=== PATIENT | female | born 1945 | race Caucasian/White ===

== ENCOUNTER → 2017-11-20 | Outpatient (CLI) | payer MEDICARE, BC ==
[2017-11-20 13:19] LABS: HCT 45.3 % (34.0-46.0); MCH 32.9 pg (25.0-35.0); MCHC 33.1 g/dL (31.0-37.0); MCV 99.4 fL (80.0-100.0); Platelet Count 283 k/uL (150-450); RBC 4.56 m/uL (3.80-5.40); RDW 13.3 % (11.5-15.5); WBC 6.2 k/uL (3.8-10.6)
[2017-11-20 13:21] LABS: Appearance,Urine Clear (Clear); Bilirubin,Urine Negative (Negative); Blood,Urine Negative (Negative); Color,Urine Yellow; Glucose,Urine (UA) Negative (Negative); Ketones,Urine Negative (Negative); Leukocyte Esterase,Urine Negative (Negative); Nitrite,Urine Negative (Negative); PH, Urine 6.5 (5.0-8.0); Protein,Urine Negative (Negative); Specific Gravity,Urine 1.013 (1.001-1.035); Urobilinogen,Urine <2.0 mg/dL (<2.0)
[2017-11-20 13:24] LABS: Partial Thromboplastin Time 22.3 sec (22.0-30.0); Prothrombin Time 9.5 sec (9.0-12.0)
[2017-11-20 13:26] LABS: ALT 37 U/L (9-52); AST 36 U/L (14-36); Albumin 4.3 g/dL (3.5-5.0); Alkaline Phosphatase 79 U/L (38-126); Anion Gap 8 mmol/L; Blood Urea Nitrogen 17 mg/dL (7-17); Calcium 10.4 mg/dL (8.4-10.2); Carbon Dioxide 34 mmol/L (22-30); Chloride 103 mmol/L (98-107); Glucose 108 mg/dL (74-99); Potassium 4.9 mmol/L (3.5-5.1); Sodium 145 mmol/L (137-145); Total Bilirubin 0.5 mg/dL (0.2-1.3); Total Protein 7.5 g/dL (6.3-8.2)
== END | disposition home or self-care (01) ==
LOC: LABPAT 12:42
PROVIDERS: ATTEND Orthopaedic Surgery Sports Medicine
DX: Z01.818 Encounter for other preprocedural examination (principal); Z01.812 Encounter for preprocedural laboratory examination
CPT/HCPCS: 36415; 80053; 81003; 85027; 85610; 85730; 87070; 93005

== ENCOUNTER → 2018-09-16 | Outpatient (CLI) | payer MEDICARE | LOC: LABWHC1 12:01 | PROVIDERS: ATTEND Otolaryngology | DX: Z01.812 Encounter for preprocedural laboratory examination (principal); H93.3X1 Disorders of right acoustic nerve; H93.11 Tinnitus, right ear; H91.91 Unspecified hearing loss, right ear | CPT/HCPCS: 36415; 82565; 84520 ==

== ENCOUNTER 2019-06-07 11:54 | Emergency (ER) | payer MEDICARE, BC ==
[2019-06-07 12:20] VITALS: BP 158/74; PULSE 61; RESP 18; TEMP 97.9
[2019-06-07 13:10] LABS: Appearance,Urine Clear (Clear); Bilirubin,Urine Negative (Negative); Blood,Urine Negative (Negative); Color,Urine Yellow; Glucose,Urine (UA) Negative (Negative); Ketones,Urine Negative (Negative); Leukocyte Esterase,Urine Negative (Negative); Nitrite,Urine Negative (Negative); PH, Urine 6.5 (5.0-8.0); Protein,Urine Negative (Negative); Specific Gravity,Urine 1.014 (1.001-1.035); Urobilinogen,Urine <2.0 mg/dL (<2.0)
--- NOTE | 2019-06-07 13:58 | ED ---
General Adult HPI - General Source: patient, RN notes reviewed Mode of arrival: ambulatory Limitations: no limitations <Miko Garibay - Last Filed: 06/07/19 13:54> <Dallas Christensen - Last Filed: 06/07/19 16:30> - General Chief complaint: Urogenital Stated complaint: UTI Time Seen by Provider: 06/07/19 12:53 - History of Present Illness Initial comments: 74-year-old female presents to the emergency department for a chief complaint of dysuria. Patient states this has on a chronic problem. States this happens a few times a year. States that her OIL WELL LOGGER gave her 7 days of Bactrim. States that when they called to check in on her she was still having urinary symptoms including dysuria. No abdominal pain. No pressure. No fevers or chills. No CVA tenderness or back pain. Patient has no other complaints at this time including shortness of breath, chest pain, abdominal pain, nausea or vomiting, headache, or visual changes. (Miko Garibay) - Related Data Home Medications Medication Instructions Recorded Confirmed Benazepril/Hydrochlorothiazide 1 tab PO DAILY 12/18/15 06/07/19 [Benazepril-Hctz 20-12.5 mg Tab] Multivit with Calcium,Iron,Min 1 tab PO DAILY 12/18/15 06/07/19 [Women's Daily Multivitamin] Rosuvastatin [Crestor] 20 mg PO DAILY 12/18/15 06/07/19 cycloSPORINE [Restasis] 1 drop BOTH EYES BID 12/18/15 06/07/19 Aspirin EC [Ecotrin Low Dose] 81 mg PO DAILY 06/07/19 06/07/19 Diethylpropion HCl [Diethylpropion 75 mg PO DAILY PRN 06/07/19 06/07/19 HCl ER] Sulfamethox-Tmp 800-160Mg [Bactrim 1 tab PO BID 06/07/19 06/07/19 DS 800-160 mg] Allergies Allergy/AdvReac Type Severity Reaction Status Date / Time bacitracin Allergy Swelling Verified 06/07/19 13:11 [From Neosporin ([id number])] bacitracin zinc Allergy Swelling Verified 06/07/19 13:11 [From Neosporin ([id number])] neomycin sulfate Allergy Swelling Verified 06/07/19 13:11 [From Neosporin ([id number])] polymyxin B Allergy Swelling Verified 06/07/19 13:11 [From Neosporin ([id number])] codeine AdvReac Nausea & Verified 06/07/19 13:11 Vomiting Review of Systems ROS Other: All systems not noted in ROS Statement are negative. <Miko Garibay - Last Filed: 06/07/19 13:54> ROS Other: All systems not noted in ROS Statement are negative. <Dallas Christensen - Last Filed: 06/07/19 16:30> ROS Statement: Those systems with pertinent positive or pertinent negative responses have been documented in the HPI. Past Medical History Past Medical History: Hyperlipidemia, Hypertension Additional Past Medical History / Comment(s): 12/18/15 Pt presented to [facility] ER via EMS after falling at home and landing on R knee then having R hip pain. She is admitted with clinical impression including closed R hip fracture. Other HX: diverticulosis, internal and external hemorrhoids. History of Any Multi-Drug Resistant Organisms: None Reported Past Surgical History: Bladder Surgery, Section, Tonsillectomy Additional Past Surgical History / Comment(s): 2012 colonoscopy, bilateral eyelid surgery, L breast benign bx, bladder surgery but pt unsure which type. Past Anesthesia/Blood Transfusion Reactions: No Reported Reaction Additional Past Anesthesia/Blood Transfusion Reaction / Comment(s): Pt has never received blood. Past Psychological History: No Psychological Hx Reported Smoking Status: Former smoker Past Alcohol Use History: Daily Past Drug Use History: None Reported - Past Family History Father Family Medical History: Coronary Artery Disease (CAD) Additional Family Medical History / Comment(s): Mother had CABG. She at age 83 yrs. Mother Family Medical History: Myocardial Infarction ([place]) Additional Family Medical History / Comment(s): Father of [place] at age 58 yrs. <Miko Garibay - Last Filed: 06/07/19 13:54> General Exam Limitations: no limitations General appearance: alert, in no apparent distress Head exam: Present: atraumatic, normocephalic, normal inspection Eye exam: Present: normal appearance, PERRL, EOMI. Absent: scleral icterus, conjunctival injection, periorbital swelling ENT exam: Present: normal exam, mucous membranes moist Neck exam: Present: normal inspection, full ROM. Absent: tenderness, meningismus, lymphadenopathy Respiratory exam: Present: normal lung sounds bilaterally. Absent: respiratory distress, wheezes, rales, rhonchi, stridor Cardiovascular Exam: Present: regular rate, normal rhythm, normal heart sounds. Absent: systolic murmur, diastolic murmur, rubs, gallop, clicks GI/Abdominal exam: Present: soft, normal bowel sounds. Absent: distended, tenderness (No suprapubic tenderness), guarding, rebound, rigid <Miko Garibay - Last Filed: 06/07/19 13:54> Course <Dallas Christensen - Last Filed: 06/07/19 16:30> Vital Signs 06/07/19 12:17 Temperature 97.9 F Pulse Rate 61 Respiratory 18 Rate Blood Pressure 158/74 O2 Sat by Pulse 97 Oximetry - Reevaluation(s) Reevaluation #1: 06/07/19 16:30 PA supervision: I personally did evaluate this case and did discuss the case with the PA and do agree with the assessment and plan. (Dallas Christensen) Medical Decision Making <Miko Garibay - Last Filed: 06/07/19 13:54> - Medical Decision Making 74-year-old female presents for dysuria. This has been ongoing for the past week or so. This has all happened previously. Patient's OIL WE[employer] LO[employer]ER prescribed her Bactrim for urinary tract infection the patient is still having dysuria. No fevers or chills. No CVA tenderness. No suprapubic pain. Urine completely negative. No white blood cells. At this time I feel patient needs to follow-up with urology. Patient agrees. Culture was sent regardless. She will return if she has any worsening symptoms. (Miko Garibay) - Lab Data Lab Results 06/07/19 Range/Units 12:55 Urine Color Yellow Urine Appearance Clear (Clear) Urine pH 6.5 (5.0-8.0) Ur Specific [place] 1.014 (1.001-1.035) Urine Protein Negative (Negative) Urine Glucose (UA) Negative (Negative) Urine Ketones Negative (Negative) Urine Blood Negative (Negative) Urine Nitrite Negative (Negative) Urine Bilirubin Negative (Negative) Urine Urobilinogen <2.0 (<2.0) mg/dL Ur Leukocyte Esterase Negative (Negative) Disposition Is patient prescribed a controlled substance at d/c from ED?: No Time of Disposition: 13:57 <Miko Garibay - Last Filed: 06/07/19 13:54> <Dallas Christensen - Last Filed: 06/07/19 16:30> Clinical Impression: Dysuria Disposition: HOME SELF-CARE Condition: Good Instructions (If sedation given, give patient instructions): Dysuria (ED) Additional Instructions: Please follow up with primary care and urology in 1-2 days. Please return to the emergency department if you have any worsening symptoms. Referrals: Julio Cesar Mederos MD [Primary Care Provider] - 1-2 days Azar Acharya MD [STAFF PHYSICIAN] - 1-2 days
== END 2019-06-07 14:13 | disposition home or self-care (01) ==
LOC: EC 11:54
DX: R30.0 Dysuria (principal); E78.5 Hyperlipidemia, unspecified; I10 Essential (primary) hypertension; Z79.82 Long term (current) use of aspirin; Z79.899 Other long term (current) drug therapy; Z88.5 Allergy status to narcotic agent; Z88.1 Allergy status to other antibiotic agents; Z88.8 Allergy status to other drugs, medicaments and biological substances; Z87.440 Personal history of urinary (tract) infections; Z87.891 Personal history of nicotine dependence
CPT/HCPCS: 81003; 87086; 99283

== ENCOUNTER → 2019-07-21 | Outpatient (CLI) | payer MEDICARE, BC ==
--- NOTE | 2019-07-21 15:17 | US ---
EXAMINATION TYPE: US kidneys/renal and bladder DATE OF EXAM: 07/21/2019 COMPARISON: NONE CLINICAL HISTORY: N39.0 Recurrent Urinary tract infection. Recurrent UTI. No pain. No hx renal stone s. EXAM MEASUREMENTS: Right Kidney: 9.9 x 5.2 x 4.9 cm Left Kidney: 10.0 x 5.6 x 6.0 cm Right Kidney: No hydronephrosis or masses seen Left Kidney: No hydronephrosis or masses seen Bladder: wall- 3.6 mm= upper limits of normal Left jet seen There is no evidence for hydronephrosis at this point in time. No nephrolithiasis is seen. No benedict s are identified. The urinary bladder is anechoic. Bilateral ureteral jets are seen. IMPRESSION: Urinary bladder wall thickening may reflect cystitis.
== END | disposition home or self-care (01) ==
LOC: RADUSWWP 14:46
PROVIDERS: ATTEND Urology
DX: N39.0 Urinary tract infection, site not specified (principal); Z88.5 Allergy status to narcotic agent; Z88.1 Allergy status to other antibiotic agents
CPT/HCPCS: 76770

== ENCOUNTER → 2020-08-16 | Outpatient (CLI) | payer MEDICARE, BC ==
--- NOTE | 2020-08-16 12:46 | US ---
EXAMINATION TYPE: US venous doppler duplex LE LT DATE OF EXAM: 08/16/2020 11:37 AM COMPARISON: NONE CLINICAL HISTORY: M79.662 Pain, R22.42 Swelling. Edema SIDE PERFORMED: Left TECHNIQUE: The lower extremity deep venous system is examined utilizing real time linear array sonog lucy with graded compression, doppler sonography and color-flow sonography. VESSELS IMAGED: External Iliac Vein (EIV) Common Femoral Vein Deep Femoral Vein Greater Saphenous Vein * Femoral Vein Popliteal Vein Small Saphenous Vein * Proximal Calf Veins (* superficial vessels) Left Leg: Negative for DVT Grayscale, color doppler, spectral doppler imaging performed of the deep veins of the left lower extr emity. There is normal flow, compressibility, vascular waveforms. IMPRESSION: No ultrasound evidence for acute deep venous thrombus in the left lower extremity.
== END | disposition home or self-care (01) ==
LOC: RADUSWWP 10:54
PROVIDERS: ATTEND Internal Medicine
DX: M79.662 Pain in left lower leg (principal); R22.42 Localized swelling, mass and lump, left lower limb

== ENCOUNTER 2021-07-12 08:13 | Emergency (ER) | payer MEDICARE, BC ==
[2021-07-12 08:22] VITALS: TEMP 98.2
--- NOTE | 2021-07-12 08:55 | XR ---
EXAMINATION TYPE: XR knee complete LT DATE OF EXAM: 07/12/2021 CLINICAL HISTORY: pain the TECHNIQUE: Three views of the left knee are obtained. COMPARISON: 12/11/2017 FINDINGS: Total knee arthroplasty is in place. No evidence for fracture or dislocation. Soft tissues are within normal limits. IMPRESSION: There is no acute fracture or dislocation ICD 10 NO FRACTURE, INITIAL EVALUATION
--- NOTE | 2021-07-12 08:56 | ED ---
General Adult HPI - General Chief complaint: Fall Stated complaint: L leg pain Time Seen by Provider: 07/12/21 08:15 Source: patient, EMS, RN notes reviewed, old records reviewed Mode of arrival: EMS Limitations: no limitations - History of Present Illness Initial comments: 76-year-old female presenting status post fall which occurred yesterday. Rissa sim fallen while in making her bed. She fell onto her left knee and hip. She has a previous history of a total knee replacement on the left. She denies head neck or back trauma. No other injury. She is able to ambulate but has pain both in the knee and hip. - Related Data Home Medications Medication Instructions Recorded Confirmed Benazepril/Hydrochlorothiazide 1 tab PO DAILY 12/18/15 06/07/19 [Benazepril-Hctz 20-12.5 mg Tab] Multivit with Calcium,Iron,Min 1 tab PO DAILY 12/18/15 06/07/19 [Women's Daily Multivitamin] Rosuvastatin [Crestor] 20 mg PO DAILY 12/18/15 06/07/19 cycloSPORINE [Restasis] 1 drop BOTH EYES BID 12/18/15 06/07/19 Aspirin EC [Ecotrin Low Dose] 81 mg PO DAILY 06/07/19 06/07/19 Diethylpropion HCl [Diethylpropion 75 mg PO DAILY PRN 06/07/19 06/07/19 HCl ER] Sulfamethox-Tmp 800-160Mg [Bactrim 1 tab PO BID 06/07/19 06/07/19 DS 800-160 mg] Previous Rx's Medication Instructions Recorded Ibuprofen [Motrin] 600 mg PO Q8HR PRN #24 tab 07/12/21 Allergies Allergy/AdvReac Type Severity Reaction Status Date / Time bacitracin Allergy Swelling Verified 06/07/19 13:11 [From Neosporin ([id number])] bacitracin zinc Allergy Swelling Verified 06/07/19 13:11 [From Neosporin ([id number])] neomycin sulfate Allergy Swelling Verified 06/07/19 13:11 [From Neosporin ([id number])] polymyxin B Allergy Swelling Verified 06/07/19 13:11 [From Neosporin ([id number]-[id number])] codeine AdvReac Nausea & Verified 06/07/19 13:11 Vomiting Review of Systems ROS Statement: Those systems with pertinent positive or pertinent negative responses have been documented in the HPI. ROS Other: All systems not noted in ROS Statement are negative. Past Medical History Past Medical History: Hyperlipidemia, Hypertension Additional Past Medical History / Comment(s): 12/18/15 Pt presented to [facility] ER via EMS after falling at home and landing on R knee then having R hip pain. She is admitted with clinical impression including closed R hip fracture. Other HX: diverticulosis, internal and external hemorrhoids. History of Any Multi-Drug Resistant Organisms: None Reported Past Surgical History: Bladder Surgery, Section, Tonsillectomy Additional Past Surgical History / Comment(s): 2012 colonoscopy, bilateral eyelid surgery, L breast benign bx, bladder surgery but pt unsure which type. Past Anesthesia/Blood Transfusion Reactions: No Reported Reaction Additional Past Anesthesia/Blood Transfusion Reaction / Comment(s): Pt has never received blood. Past Psychological History: No Psychological Hx Reported Past Alcohol Use History: Daily Past Drug Use History: None Reported - Past Family History Father Family Medical History: Coronary Artery Disease (CAD) Additional Family Medical History / Comment(s): Mother had CABG. She at age 83 yrs. Mother Family Medical History: Myocardial Infarction ([place]) Additional Family Medical History / Comment(s): Father of [place] at age 58 yrs. General Exam Limitations: no limitations General appearance: alert, in no apparent distress Head exam: Present: atraumatic, normocephalic Eye exam: Present: normal appearance, PERRL ENT exam: Present: normal exam Neck exam: Present: normal inspection. Absent: tenderness, meningismus Respiratory exam: Present: normal lung sounds bilaterally. Absent: respiratory distress, wheezes Cardiovascular Exam: Present: regular rate, normal rhythm GI/Abdominal exam: Present: soft. Absent: distended, tenderness, guarding Extremities exam: Present: full ROM (Pain with range of motion at the knee), joint swelling (Knee swelling, on the left.). Absent: calf tenderness Neurological exam: Present: alert, oriented X3 Psychiatric exam: Present: normal affect, normal mood Skin exam: Present: warm, dry, intact Course Vital Signs 07/12/21 07/12/21 08:17 09:21 Temperature 98.2 F Pulse Rate 59 L 82 Respiratory 18 16 Rate Blood Pressure 100/71 157/88 O2 Sat by Pulse 96 96 Oximetry Medical Decision Making - Medical Decision Making X-ray performed, negative for fracture dislocation of the left hip or left knee. Patient is able to ambulate with a walker in the emergency department. We did discuss the possibility of admission versus outpatient follow-up. Patient feels she will do okay as an outpatient she will call her orthopedic surgeon Dr. Tejeda. May require further imaging, possible physical therapy. Disposition Clinical Impression: Fall, Contusion of knee, left Disposition: HOME SELF-CARE Condition: Fair Instructions (If sedation given, give patient instructions): Fall Prevention for Older Adults (ED), Knee Sprain (ED) Prescriptions: Ibuprofen [Motrin] 600 mg PO Q8HR PRN #24 tab PRN Reason: Pain Is patient prescribed a controlled substance at d/c from ED?: No Referrals: Julio Cesar Mederos MD [Primary Care Provider] - 1-2 days Ahsan Tejeda MD [STAFF PHYSICIAN] - 1-2 days Time of Disposition: 10:13
--- NOTE | 2021-07-12 08:58 | XR ---
EXAMINATION TYPE: XR Hip LT and AP Pelvis DATE OF EXAM: 07/12/2021 CLINICAL HISTORY: pain TECHNIQUE: AP and frogleg views of the left hip are obtained. Single view of the pelvis is submitted . COMPARISON: None. FINDINGS: There is no acute fracture/dislocation evident. The joint space appears severely narrowe d on the left and moderately narrowed on the right. Postoperative changes right hip.. The overlying soft tissue appears unremarkable. IMPRESSION: 1. There is no acute fracture or dislocation. ICD 10 NO FRACTURE, INITIAL EVALUATION
[2021-07-12] MEDS ORDERED: KETOROLAC 15 MG/ML 1 ML VIAL IM STA (09:15)
[2021-07-12 09:30] VITALS: BP 157/88; RESP 16
[2021-07-12 11:01] VITALS: PULSE 79
== END 2021-07-12 10:39 | disposition home or self-care (01) ==
LOC: EC 08:13
DX: S80.02XA Contusion of left knee, initial encounter (principal); I10 Essential (primary) hypertension; E78.5 Hyperlipidemia, unspecified; Z79.82 Long term (current) use of aspirin; Z88.1 Allergy status to other antibiotic agents; Z88.5 Allergy status to narcotic agent; Z96.652 Presence of left artificial knee joint; Z90.89 Acquired absence of other organs; W06.XXXA Fall from bed, initial encounter
CPT/HCPCS: 99284; 96372; 73502; 73562; J1885

== ENCOUNTER → 2021-10-30 | Outpatient (CLI) | payer MEDICARE, BC | END | disposition home or self-care (01) | LOC: LABWHC1 10:56 | PROVIDERS: ATTEND Orthopaedic Surgery | DX: Z96.652 Presence of left artificial knee joint (principal); T84.023A Instability of internal left knee prosthesis, initial encounter; Y82.9 Unspecified medical devices associated with adverse incidents | CPT/HCPCS: 36415; 85379; 85652; 86140 ==

== ENCOUNTER → 2024-03-02 | Outpatient (CLI) | payer MEDICARE ==
--- NOTE | 2024-03-03 11:08 | CA ---
Transthoracic Echo Report Name: Manisha Cintron Age: 78 Gender: F : 1945 Exam Date: 03/02/2024 12:53 Exam Location: [facility] Ht (in): 68 Wt (lb): 158 Ordering Physician: Julio Cesar Mederos MD Attending/Referring Phys: Rosa M MARIE [employer]ator Faby Harris RDCS Procedure CPT: Indications: R94.31 ABNORMAL ELECTROCARDIOGRAM [ECG] [EKG] Cardiac Hx: Technical Quality: Fair Contrast 1: Total Dose (mL): Contrast 2: Total Dose (mL): MEASUREMENTS (Male / Female) Normal Values 2D ECHO LV Diastolic Diameter PLAX 4.3 cm 4.2 - 5.9 / 3.9 - 5.3 cm LV Systolic Diameter PLAX 2.9 cm IVS Diastolic Thickness 1.1 cm 0.6 - 1.0 / 0.6 - 0.9 cm LVPW Diastolic Thickness 1.2 cm 0.6 - 1.0 / 0.6 - 0.9 cm LV Relative Wall Thickness 0.5 RV Internal Dim ED PLAX 2.5 cm LVOT Diameter 1.9 cm Aortic Root Diameter 3.3 cm LV Diastolic Volume MOD BP 97.6 cm??? 67 - 155 / 56 - 104 cm??? LV Systolic Volume MOD BP 37.5 cm??? 22 - 58 / 19 - 49 cm??? LV Ejection Fraction MOD BP 61.6 % >= 55 % LV Cardiac Index MOD BP 2778.7 cm???/min???m??? LV Diastolic Volume MOD 4C 99.6 cm??? LV Systolic Volume MOD 4C 39.2 cm??? LV Ejection Fraction MOD 4C 60.6 % LV Cardiac Index MOD 4C 2787.7 cm???/min???m??? LV Diastolic Length 4C 7.3 cm LV Systolic Length 4C 6.1 cm LV Diastolic Volume MOD 2C 95.3 cm??? LV Systolic Volume MOD 2C 34.5 cm??? LV Ejection Fraction MOD 2C 63.8 % LV Cardiac Index MOD 2C 2808.3 cm???/min???m??? LV Diastolic Length 2C 7.2 cm LV Systolic Length 2C 5.9 cm Ascending Aorta Diameter 3.9 cm DOPPLER AV Peak Velocity 142.2 cm/s AV Peak Gradient 8.1 mmHg AV Mean Velocity 93.4 cm/s AV Mean Gradient 4.0 mmHg AV Velocity Time Integral 32.7 cm LVOT Peak Velocity 110.5 cm/s LVOT Peak Gradient 4.9 mmHg LVOT Velocity Time Integral 25.5 cm LVOT Stroke Volume 71.8 cm??? LVOT Stroke Volume Index 38.8 ml/m??? LVOT Cardiac Index 3318.3 cm???/min???m??? AV Area Cont Eq vti 2.2 cm??? AV Area Cont Eq pk 2.2 cm??? MV Peak Velocity 119.6 cm/s MV Peak Gradient 5.7 mmHg MV Mean Velocity 69.7 cm/s MV Mean Gradient 2.2 mmHg MV Velocity Time Integral 40.7 cm Mitral E Point Velocity 77.8 cm/s Mitral A Point Velocity 111.7 cm/s Mitral E to A Ratio 0.7 MV Deceleration Time 264.3 ms MV E' Velocity 5.6 cm/s Mitral E to MV E' Ratio 13.9 PV Peak Velocity 78.3 cm/s PV Peak Gradient 2.5 mmHg FINDINGS Left Ventricle Left ventricular ejection fraction is estimated at 55 to 60 %. Mildly increased left ventricular wall thickness. . Left ventricular cavity size normal. No obvious regional wall motion abnormalities. Right Ventricle Normal right ventricular size and function. Unable to estimate the right ventricular systolic pressure. Right Atrium Normal right atrial size. Left Atrium Normal left atrial size. Mitral Valve Mitral valve thickened. Mitral annular calcification. No evidence for mitral valve prolapse. No mitral regurgitation. Aortic Valve Trileaflet aortic valve. No aortic valve stenosis or regurgitation. Tricuspid Valve Structurally normal tricuspid valve. No tricuspid stenosis. Mild tricuspid regurgitation. Pulmonic Valve Pulmonic valve not well visualized. No pulmonic stenosis. Trace pulmonic regurgitation. Pericardium No pericardial effusion.echo free space anterior to the right ventricle likely represents a fat pad. Aorta Normal size aortic root and proximal ascending aorta. CONCLUSIONS 1. Normal left ventricular size and systolic function 2. Mild tricuspid regurgitation Previewed by: Dr. Nicolas Merrill MD (Electronically Signed) Final Date: 03 Mar 2024 11:06
== END | disposition home or self-care (01) ==
LOC: RADECHMAIN 12:41
PROVIDERS: ATTEND Internal Medicine
DX: I36.1 Nonrheumatic tricuspid (valve) insufficiency (principal); R94.31 Abnormal electrocardiogram [ECG] [EKG]; R22.43 Localized swelling, mass and lump, lower limb, bilateral
CPT/HCPCS: 93306